=== PATIENT | female | born 2000 | race African-American/Black ===

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

== ENCOUNTER 2019-10-07 17:34 | Emergency (ER) | payer MEDICAID, OTHER ==
[~2019-10-07] VITALS: Ht 167.6 cm; Wt 77.6 kg
[2019-10-07 18:05] VITALS: BP 111/61
[2019-10-07] MEDS ORDERED: PREN-96 PO (18:55)
== END 2019-10-07 18:16 | disposition still patient (30) ==
LOC: ER 17:34
DX: O26.891 Other specified pregnancy related conditions, first trimester (principal); R10.9 Unspecified abdominal pain; Z3A.11 11 weeks gestation of pregnancy

== ENCOUNTER 2019-10-07 18:23 | Observation (INO) | payer MEDICAID ==
[~2019-10-07] VITALS: Ht 167.6 cm; Wt 77.6 kg
[2019-10-07] MEDS ORDERED: PREN-96 PO (18:55)
[2019-10-07 21:31] LABS: Amphetamine Screen, Urine NEGATIVE (NEGATIVE); Barbiturate Scree,Urine NEGATIVE (NEGATIVE); Benzodiazephine Screen, Urine NEGATIVE (NEGATIVE); Cannabinoid Screen, Urine NEGATIVE (NEGATIVE); Cocaine Screen, Urine NEGATIVE (NEGATIVE); Opiate Scree,Urine NEGATIVE (NEGATIVE); Phencyclidine Screen, Urine NEGATIVE (NEGATIVE)
== END 2019-10-07 20:05 | disposition home or self-care (01) | DRG 566 ==
LOC: LDRP 18:23
PROVIDERS: ADMIT Specialist; ATTEND Specialist
DX: O26.891 Other specified pregnancy related conditions, first trimester (principal); R10.9 Unspecified abdominal pain; O62.9 Abnormality of forces of labor, unspecified; Z3A.11 11 weeks gestation of pregnancy
CPT/HCPCS: 59025; 76801; 80307; 81002; G0378

== ENCOUNTER 2021-11-22 08:15 | Emergency (ER) | payer MEDICAID, OTHER ==
[~2021-11-22] VITALS: Ht 167.6 cm; Wt 76.8 kg
[~2021-11-22 08:15] MED LIST: PREN-96 PO
[2021-11-22 09:07] VITALS: BP 116/74
[2021-11-22] MEDS ORDERED: cefTRIAXone SOD 1,000 MG VL IM ONE (09:45)
[2021-11-22] MEDS ORDERED: DOXY-338 PO (10:06)
[2021-11-22 10:14] LABS: Urine Bacteria FEW /hpf (None Seen); Urine Blood 1+ /uL (Negative); Urine Budding Yeast MANY /hpf (None Seen); Urine WBC 1697 /hpf (0 - 5); Urine WBC Clumps PRESENT /hpf (None Seen)
== END 2021-11-22 10:17 | disposition home or self-care (01) ==
LOC: ER 08:15
DX: Z20.2 Contact with and (suspected) exposure to infections with a predominantly sexual mode of transmission (principal)
CPT/HCPCS: 81001; 87491; 87591; 96372; 99283; J0696